=== PATIENT | male | born 2000 | race Caucasian/White ===

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

== ENCOUNTER 2022-01-05 17:24 | Emergency (ER) | payer SELFPAY ==
[2022-01-05] MEDS ORDERED: Doxycycline Susp 25 MG/5 ML 60 ML Bottle PO ONE (19:01)
[2022-01-05] MEDS ORDERED: cefTRIAXone 500 MG, Lidocaine 1% 1 ML IM ONE ×2 (19:01)
[2022-01-05 19:04] LABS: ESTIMATED GFR 123 mL/min (>60)
[2022-01-10 10:15] LABS: CHLAMYDIA TRACHOMATIS, NAA Negative (Negative); NEISSERIA GONORRHOEAE, NAA Negative (Negative)
== END 2022-01-05 19:53 | disposition home or self-care (01) ==
LOC: JP.ED 17:24
DX: N39.0 Urinary tract infection, site not specified (principal); Z86.16 Personal history of COVID-19
CPT/HCPCS: 36415; 80053; 81001; 85025; 87086; 87210; 87491; 87591; 96372; 99283; A9270; J0696

== ENCOUNTER 2022-11-02 20:14 | Emergency (ER) | payer MEDICAID ==
[2022-11-02] MEDS ORDERED: Ketorolac 30 MG/ML SDV IM ONE (20:42)
[2022-11-02] MEDS ORDERED: Bacitracin Oint 1 GM U/D Packet TOP ONE (20:42)
== END 2022-11-02 21:46 | disposition home or self-care (01) ==
LOC: JP.ED 20:14
DX: T20.27XA Burn of second degree of neck, initial encounter (principal); Z86.16 Personal history of COVID-19; X12.XXXA Contact with other hot fluids, initial encounter
CPT/HCPCS: 16020; 96372; 99283; J1885